=== PATIENT | female | born 1950 | race Caucasian/White ===

== ENCOUNTER 2017-03-08 02:35 | Observation (INO) | payer OTHER ==
[2017-03-08] MEDS ORDERED: NS 1,000 ML IV ONE ×2 (02:39→04:59)
[2017-03-08] MEDS ORDERED: HYDROmorphONE/DILAUDID 1 MG/ML INJ IVP ONE (02:39)
[2017-03-08] MEDS ORDERED: ONDANSETRON 4 MG/2 ML VIAL IVP ONE (02:39)
--- NOTE | 2017-03-08 02:42 | EDPHY ---
H & P HPI/ROS: HPI CHIEF COMPLAINT: Fall, right lateral abdomen pain and swelling HISTORY OF PRESENT ILLNESS: Patient very pleasant 66-year-old female she resides in [facility], she is here for comfort. She fell walking [place] from the comfort this [place] on the [employer] [place] she tripped over brick. Landing on her right side. She sustained trauma to the right lateral lower abdomen. She went back to her hotel. Was unable to sleep. The pain persisted. She developed a rather large right lateral abdominal hematoma. Tender to palpation. She denies any vomiting. Denies chest pain or shortness of breath. Denies lower abdomen pain. Denies back pain. Denies headache or neck pain or extremity pain. Past Medical History: Denies medical history Past Surgical History: Denies any recent surgery. Social History: Denies daily use of drugs alcohol tobacco products. Family History: Noncontributory ROS REVIEW OF SYSTEMS: A comprehensive 10 point review of systems is otherwise negative aside from elements mentioned in the history of present illness. Exam Constitutional triage nursing summary reviewed, vital signs reviewed, awake/ alert. Eyes normal conjunctivae and sclera, EOMI, PERRLA. HENT normal inspection, atraumatic, moist mucus membranes, no epistaxis, neck supple/ no meningismus, no raccoon eyes. Respiratory clear to auscultation bilaterally, normal breath sounds, no respiratory distress, no wheezing. Cardiovascular rate normal, regular rhythm, no murmur, no edema, distal pulses normal. Gastrointestinal mild tender palpation right lower lateral abdomen with rather large hematoma firm in nature. Otherwise her abdomen and there is no peritoneal signs. No guarding normal bowel sounds, no distension, no pulsatile mass. Genitourinary no CVA tenderness. Musculoskeletal no midline vertebral tenderness, full range of motion, no calf swelling, no tenderness of extremities, no meningismus, good pulses, neurovascularly intact. Skin pink, warm, & dry, no rash, skin atraumatic. Neurologic awake, alert and oriented x 3, AAOx3, moves all 4 extremities equally, motor intact, sensory intact, CN II-XII intact, normal cerebellar, normal vision, normal speech. Psychiatric normal mood/affect. Heme/Lymph/Immune no lymphadenopathy. Differential Diagnosis: Includes but is not limited to in a particular order blunt force trauma to the abdomen, liver laceration, intra-abdominal bleed, thoracic chest wall injury, right abdominal wall hematoma with active bleed with active extracted, right abdominal wall hematoma Medical Decision Making: Plan for this patient IV establishment with blood draw , type and screen, CT scan abdomen pelvis with IV contrast for trauma. Chest x- ray. Re-evaluation: CT scan of the abdomen pelvis with IV contrast The results of the study are shows a rather large right flank and right subcutaneous hematoma with active extravasation of CT contrast. No acute intra-abdominal organ injury. No acute free fluid or free air. The study was read by Dr. Choe I viewed the images myself on the PACS system. 0331AM: Will consult Trauma surgery. Patient has blood work has been reviewed is normal. Type and screen. Pain control medications ordered. 0337AM: Updated patient on findings. She agrees for admission. Patient currently getting IV fluids. She is hemodynamically stable. She did receive pain medicine. Will admit to Trauma surgery for observation, to make sure the hematoma does not get larger continues to bleed. It Is also possible this may need to be drained. 0419AM: Dr. Alexis Will see and evaluate the patient. Plan for admission. Patient updated. Hemodynamically stable. NAD. Resting. VSS. 0526AM: Patient resting. Patient has ice packs to hematoma and pressure dressing. TXA has been ordered. Repeat CBC ordered. Still doing well. Admit to Dr. Alexis. Source: Patient, EMS Constitutional: Initial Vital Signs Temperature (C) 36.5 C 03/08/17 02:35 Heart Rate 86 03/08/17 02:35 Respiratory Rate 18 03/08/17 02:35 Blood Pressure 122/84 H 03/08/17 02:35 O2 Sat (%) 98 03/08/17 02:35 O2 Delivery Mode Room Air Allergies/Adverse Reactions: penicillin G Allergy (Verified 03/08/17 02:53) Home Medications: Medication Instructions Recorded Ascorbic Acid [Vitamin C 500 mg 1,000 mg PO BID 03/08/17 (*)] Cholecalciferol Vit D3 [Vitamin D3 2,000 units PO DAILY 03/08/17 2000 units tab (OTC)] Cyanocobalamin [Vitamin B12 (*)] 1,000 mcg PO DAILY 03/08/17 Herbals/Supplements -Info Only 1 ea PO DAILY 03/08/17 Naproxen Sodium [Aleve 220 MG (*)] 220 - 440 mg PO DAILY PRN 10/17/17 [place]-3 Fatty Acids [Fish Oil 1000 1,000 mg PO HS 03/08/17 mg (*)] Medical Decision Making - Data Points Laboratory Results: Laboratory Results 03/08/17 02:57 03/08/17 02:57 Medications Given: Acetaminophen (Tylenol) 325 - 650 mg PO Q4HRS PRN PRN Reason: Pain, Mild Able to Take PO Stop: 09/04/17 05:05 Last Admin: 03/08/17 20:53 Dose: 650 mg Zolpidem Tartrate (Ambien) 5 - 10 mg PO HS PRN PRN Reason: Sleep/Insomnia Stop: 09/04/17 05:05 Last Admin: 03/08/17 20:52 Dose: 5 mg Discontinued Medications Hydromorphone HCl (Dilaudid) 0.5 mg IVP EDNOW ONE Stop: 03/08/17 02:40 Last Admin: 03/08/17 03:32 Dose: 0.5 mg Sodium Chloride (Ns) 1,000 mls @ 0 mls/hr IV ONCE ONE; Wide Open PRN Reason: Protocol Stop: 03/08/17 02:40 Last Admin: 03/08/17 03:30 Dose: 1,000 mls Tranexamic Acid 1,000 mg/ (Sodium Chloride) 110 mls @ 0 mls/hr IV EDNOW ONE PRN Reason: As Directed Stop: 03/08/17 04:47 Last Admin: 03/08/17 05:21 Dose: 110 mls Sodium Chloride (Ns) 1,000 mls @ 0 mls/hr IV ONCE ONE PRN Reason: Wide Open Stop: 03/08/17 05:00 Last Admin: 03/08/17 05:59 Dose: 1,000 mls Tranexamic Acid 1,000 mg/ (Sodium Chloride) 510 mls @ 63.75 mls/hr IV ONCE ONE Stop: 03/08/17 13:29 Last Admin: 03/08/17 06:04 Dose: 510 mls Ondansetron HCl (Zofran) 4 mg IVP EDNOW ONE Stop: 03/08/17 02:40 Last Admin: 03/08/17 03:30 Dose: 4 mg Departure - Departure Disposition: [facility] In[facility] Acute Clinical Impression: Hematoma Fall Qualifiers: Encounter type: initial encounter Qualified Code(s): W19.XXXA - Unspecified fall, initial encounter Condition: Serious
[2017-03-08] MEDS ORDERED: IOPAMIDOL (ISOVUE-300) 100 ML BTL ONE (02:51)
[2017-03-08 02:58] LABS: % IMMATURE GRANULYOCYTES 0.3 % (0.0-1.1); ABSOLUTE IMMATURE GRANULOCYTES 0.03 10^3/uL (0.00-0.10); ADD DIFF? NO; ADD MORPH? NO; ADD SCAN? NO; ATYPICAL LYMPHOCYTE FLAG 0 (0-99); FRAGMENT RBC FLAG 0 (0-99); HEMATOCRIT 37.4 % (38.0-47.0); HEMOGLOBIN 12.9 g/dL (12.6-16.3); LEFT SHIFT FLG 0 (0-99); LIPEMIA HEMOLYSIS FLAG 90 (0-99); MEAN CELL HEMOGLOBIN 30.6 pg (27.9-34.1); MEAN CELL HEMOGLOBIN CONCENTR. 34.5 g/dL (32.4-36.7); MEAN CELL VOLUME 88.8 fL (81.5-99.8); MEAN PLATELET VOLUME 9.8 fL (8.7-11.7); PLATELET CLUMPS FLAG 0 (0-99); PLATELET COUNT 248 10^3/uL (150-400); RED BLOOD CELL COUNT 4.21 10^6/uL (4.18-5.33); RED CELL DISTRIBUTION WIDTH 13.2 % (11.5-15.2)
[2017-03-08 03:06] LABS: ANION GAP 10 mEq/L (8-16); CALCIUM 9.3 mg/dL (8.5-10.4); CARBON DIOXIDE 24 mEq/l (22-31); CHLORIDE 104 mEq/L (97-110); CREATININE 1.2 mg/dL (0.6-1.0); GLOMERULAR FILTRATION RATE 45; GLUCOSE 140 mg/dL (70-100); POTASSIUM 3.9 mEq/L (3.5-5.2); SODIUM 138 mEq/L (134-144)
[2017-03-08 03:07] LABS: INR 0.89 (0.83-1.16); PROTIME(PATIENT) 11.9 SEC (12.0-15.0)
[2017-03-08 03:08] LABS: APTT 27.7 SEC (23.0-38.0)
[2017-03-08] MEDS ORDERED: TRANEXAMIC ACID 1,000 MG in NS 100 ML IV ONE ×2 (04:46→05:01)
[2017-03-08 04:59] LABS: % IMMATURE GRANULYOCYTES 0.5 % (0.0-1.1); ABSOLUTE IMMATURE GRANULOCYTES 0.04 10^3/uL (0.00-0.10); ABSOLUTE NRBC COUNT 0.02 10^3/uL (0-0.01); ADD DIFF? NO; ADD MORPH? NO; ADD SCAN? NO; ATYPICAL LYMPHOCYTE FLAG 0 (0-99); FRAGMENT RBC FLAG 0 (0-99); HEMATOCRIT 31.2 % (38.0-47.0); HEMOGLOBIN 10.9 g/dL (12.6-16.3); LEFT SHIFT FLG 0 (0-99); LIPEMIA HEMOLYSIS FLAG 90 (0-99); MEAN CELL HEMOGLOBIN CONCENTR. 34.9 g/dL (32.4-36.7); MEAN CELL VOLUME 88.6 fL (81.5-99.8); MEAN PLATELET VOLUME 9.7 fL (8.7-11.7); NRBC-AUTO% 0.2 % (0.0-0.2); PLATELET CLUMPS FLAG 10 (0-99); PLATELET COUNT 196 10^3/uL (150-400); RED BLOOD CELL COUNT 3.52 10^6/uL (4.18-5.33); RED CELL DISTRIBUTION WIDTH 13.2 % (11.5-15.2)
[2017-03-08] MEDS ORDERED: ZOLPIDEM TARTRATE 5 MG TAB PO PRN (05:06)
[2017-03-08] MEDS ORDERED: ONDANSETRON 4 MG/2 ML VIAL IVP PRN (05:06)
[2017-03-08] MEDS ORDERED: D5W 1/2 NS 1,000 ML IV SCH (05:15)
--- NOTE | 2017-03-08 05:18 | SOAPPROG ---
SOAP Progress Note Assessment/Plan: Assessment: PLEASANT 66 FEMALE TRIPPED AND FELL LAST PM/ LARGE RT FLANK HEMATOMA WITH EXTRAV ON CT ADMIT FOR OBS, POSSIBLE NEED FOR SURGERY/ ON NO BLOOD THINNERS/ NO LOC PMH NEG MEDS NONE NKA HEENT- CHEST CLEAR COR RR, VS STABLE ABD SOFT, NONTENDER EXCEPT FOR 25 CM SUBCUT HEMATOMA RT FLANK EXTREM FULL PULSES AND ROM NEURO INTACT Plan:OBS/ TXA/ COMPRESSION WRAP/ SERIAL HCT/ ICE/ MAY NEED DRAINAGE/ RISKS AND OPTIONS FULLY DISCUSSED 03/08/17 05:13 Objective: Vital Signs Temp Pulse Resp BP Pulse Ox 36.5 C 86 18 122/84 H 98 03/08/17 02:35 03/08/17 02:35 03/08/17 02:35 03/08/17 02:35 03/08/17 02:35 Laboratory Results 03/08/17 04:45 PT 11.9 SEC (12.0-15.0) L 03/08/17 02:57 INR 0.89 (0.83-1.16) 03/08/17 02:57 ICD10 Worksheet Patient Problems: Problems Problem Status Onset Fall Acute Hematoma Acute
[2017-03-08] MEDS ORDERED: TRANEXAMIC ACID 1,000 MG in NS 500 ML IV ONE (05:30)
--- NOTE | 2017-03-08 06:06 | GHP ---
[f rep st] PREOP HISTORY AND PHYSICAL DATE OF ADMISSION: 03/08/2017 HISTORY OF PRESENT ILLNESS: Patient is a very pleasant 66-year-old female, who [place] and fell [place] [address] [place], brought to the ER this morning with an enlarging right flank hematoma an d discomfort. She is on no blood thinners. She had no loss of consciousness and complains primarily of a large swelling in her right flank. CT scan done in the ER shows a large subcutaneous hematoma with some active extravasation in the right flank. No intraabdominal injuries. Chest x-ray was alina r. Hematocrit was 37, and coagulation studies were normal. She has no other complaints of injuries. PAST MEDICAL HISTORY: Negative for any major medical issues. REVIEW OF SYSTEMS: Negative on a full 10-point review of systems. Specifically, she is a nonsmoker with no cardiopulmonary symptoms. ALLERGIES: None. MEDICATIONS: None. PHYSICAL EXAMINATION: GENERAL: An alert 66-year-old female, who is in no acute distress. She is af ebrile. HEAD and NECK: Revealed no icterus, adenopathy, or oral lesions. No thyromegaly. NECK: S upple, nontender. CHEST: Symmetrical breath sounds. Nontender chest. CARDIAC: Regular rhythm. A BDOMEN: Soft and nontender except for a large 25 cm subcutaneous hematoma in the right flank. There is no external ecchymosis yet. EXTREMITIES: Reveal full pulses, full range of motion. NEUROLOGIC: Physiologic and symmetric. PSYCH: Reveals her to be oriented, cooperative, and alert. IMPRESSION: A large right flank hematoma secondary to blunt trauma. PLAN: Admit for observation, TXA administration, compression dressings, ice packs, possibility of mckeon rgical drainage or IR intervention has been discussed. The risks and options have been fully discuss ed with the patient. /[id number]/MODL
[2017-03-08 08:05] LABS: % IMMATURE GRANULYOCYTES 0.3 % (0.0-1.1); ABSOLUTE IMMATURE GRANULOCYTES 0.02 10^3/uL (0.00-0.10); ADD DIFF? NO; ADD MORPH? NO; ADD SCAN? NO; ATYPICAL LYMPHOCYTE FLAG 0 (0-99); FRAGMENT RBC FLAG 0 (0-99); HEMATOCRIT 28.9 % (38.0-47.0); HEMOGLOBIN 9.6 g/dL (12.6-16.3); LEFT SHIFT FLG 0 (0-99); LIPEMIA HEMOLYSIS FLAG 80 (0-99); MEAN CELL HEMOGLOBIN CONCENTR. 33.2 g/dL (32.4-36.7); MEAN CELL VOLUME 90.3 fL (81.5-99.8); MEAN PLATELET VOLUME 10.3 fL (8.7-11.7); PLATELET CLUMPS FLAG 0 (0-99); PLATELET COUNT 168 10^3/uL (150-400); RED CELL DISTRIBUTION WIDTH 13.3 % (11.5-15.2)
--- NOTE | 2017-03-08 08:34 | SOAPPROG ---
SOAP Progress Note Assessment/Plan: Assessment: Plan: Subjective: r flank pain. Objective: Vital Signs Temp Pulse Resp BP Pulse Ox 36.4 C 67 21 H 96/60 L 99 03/08/17 07:37 03/08/17 07:37 03/08/17 07:37 03/08/17 07:37 03/08/17 07:37 Laboratory Results 03/08/17 07:50 03/07/17 03/08/17 03/09/17 05:59 05:59 05:59 Intake Total 1000 2000 Balance 1000 2000 PT 11.9 SEC (12.0-15.0) L 03/08/17 02:57 INR 0.89 (0.83-1.16) 03/08/17 02:57 abd with swelling over right flank, skin intact. will follow clincally. unlikely needs emergent drainage. will change to velcro binder, repeat hct at 1500, may dc later today. will likely need eventual drainage when back in [place]. ICD10 Worksheet Patient Problems: Problems Problem Status Onset Fall Acute Hematoma Acute
[2017-03-08 09:31] LABS: COLOR YELLOW; LEUKOCYTE ESTERASE,URINE NEGATIVE (NEGATIVE); NITRITE,URINE NEGATIVE (NEGATIVE)
[2017-03-08 09:37] LABS: MUCUS TRACE /lpf (NONE-1+)
[2017-03-08 15:09] LABS: % IMMATURE GRANULYOCYTES 0.2 % (0.0-1.1); ABSOLUTE IMMATURE GRANULOCYTES 0.01 10^3/uL (0.00-0.10); ADD DIFF? NO; ADD MORPH? NO; ADD SCAN? NO; ATYPICAL LYMPHOCYTE FLAG 10 (0-99); FRAGMENT RBC FLAG 0 (0-99); HEMOGLOBIN 9.2 g/dL (12.6-16.3); LEFT SHIFT FLG 0 (0-99); LIPEMIA HEMOLYSIS FLAG 90 (0-99); MEAN CELL HEMOGLOBIN 30.7 pg (27.9-34.1); MEAN CELL HEMOGLOBIN CONCENTR. 34.1 g/dL (32.4-36.7); MEAN PLATELET VOLUME 9.8 fL (8.7-11.7); PLATELET CLUMPS FLAG 10 (0-99); PLATELET COUNT 180 10^3/uL (150-400); RED CELL DISTRIBUTION WIDTH 13.5 % (11.5-15.2)
[2017-03-08] MEDS: ACETAMINOPHEN 325 MG TAB PO PRN (20:53)
[2017-03-09 01:10] LABS: % IMMATURE GRANULYOCYTES 0.5 % (0.0-1.1); ABSOLUTE IMMATURE GRANULOCYTES 0.02 10^3/uL (0.00-0.10); ADD DIFF? NO; ADD MORPH? NO; ADD SCAN? NO; ATYPICAL LYMPHOCYTE FLAG 0 (0-99); FRAGMENT RBC FLAG 0 (0-99); HEMATOCRIT 27.9 % (38.0-47.0); HEMOGLOBIN 9.3 g/dL (12.6-16.3); LEFT SHIFT FLG 0 (0-99); LIPEMIA HEMOLYSIS FLAG 80 (0-99); MEAN CELL HEMOGLOBIN CONCENTR. 33.3 g/dL (32.4-36.7); MEAN PLATELET VOLUME 9.8 fL (8.7-11.7); PLATELET CLUMPS FLAG 10 (0-99); PLATELET COUNT 155 10^3/uL (150-400); RED CELL DISTRIBUTION WIDTH 13.6 % (11.5-15.2)
[2017-03-09] MEDS: ACETAMINOPHEN 325 MG TAB PO PRN (06:58)
--- NOTE | 2017-03-09 08:37 | PDDCSUM ---
Discharge Summary Discharge Summary: DOA: 03/08/2017 DOD: 03/09/2017 DC diagnosis: right flank hematoma Course: [place] [address] [place] and struck her right side. She presented to the ED after she called 911. She was found to have a large right flank hematoma with arterial extravasation on CT. Her Hct stabilized at 27% and she remained hemodynamically stable. She had no other injuries identified. She was advanced in her diet and discharged home on 03/09 and will leave for [place], [place] tomorrow with her daughter. She took only Tylenol for pain and I think it will be safe for her to resume Naprosyn in addition. DC meds: medication reconciliation complete Rx for Ambien 5mg #7 FU: PCP in [place].
[2017-03-09 11:43] VITALS: BP 104/78; PULSE 84; RESP 18; TEMP 97.5; O2SAT 96
== END 2017-03-09 11:15 | disposition home or self-care (01) ==
LOC: OBSVTOIN 04:18 → INTOOBSV 04:18 → F2N 06:50 → FOB 17:53
PROVIDERS: ADMIT Surgery; ATTEND Surgery
DX: S30.1XXA Contusion of abdominal wall, initial encounter (principal); W01.198A Fall on same level from slipping, tripping and stumbling with subsequent striking against other object, initial encounter; Y92.59 Other trade areas as the place of occurrence of the external cause
CPT/HCPCS: 71010; 74177; 96361; 96374; 96375; 97161; 97165; 99285; G0378; 82947-QW; J1170; J2405; Q9967